=== PATIENT | female | born 2005 | race Caucasian/White ===

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

== ENCOUNTER 2023-03-26 13:59 | Outpatient (CLI) | payer BC, SELFPAY | END 2023-03-26 14:00 | disposition home or self-care (01) | LOC: NFLDREF 03-27 11:31 | PROVIDERS: PCP Family Medicine; Referring Provider Family Medicine; Visit Provider Family Medicine | DX: D64.9 Anemia, unspecified (principal); R53.83 Other fatigue | CPT/HCPCS: 82607; 82728 ==

== ENCOUNTER 2023-09-16 14:07 | Outpatient (CLI) | payer BC, SELFPAY | END 2023-09-16 14:08 | disposition home or self-care (01) | PROVIDERS: PCP Family Medicine; Referring Provider Family Medicine; Visit Provider Family Medicine | DX: E61.1 Iron deficiency (principal); Z13.220 Encounter for screening for lipoid disorders | CPT/HCPCS: 80061; 82728 ==